=== PATIENT | female | born 1965 | race Caucasian/White ===

== ENCOUNTER 2021-07-17 18:00 | Emergency (ER) | payer OTHER ==
[2021-07-17 18:30] VITALS: BP 117/79; PULSE 70; TEMP 97.9; BMI 22.6
[2021-07-17] MEDS ORDERED: IBUPROFEN 600 MG TABLET (FP) PO ONE ×2 (19:47→20:13)
[2021-07-17 21:48] LABS: EPI CELLS 1 /uL (0-25.1); HYALINE CASTS 1 /uL (0-3.1); PH,URINE 5.5 (5.0-8.0); URINE APPEARANCE CLOUDY; URINE BILIRUBIN 2+ (NEGATIVE); URINE COLOR ORANGE; URINE GLUCOSE (UA) NEGATIVE (NEGATIVE); URINE KETONE NEGATIVE (NEGATIVE); URINE LEUK ESTERASE 2+ (NEGATIVE); URINE NITRITE POSITIVE (NEGATIVE); URINE PROTEIN 4+ (NEGATIVE); URINE RBC 4742 /uL (0-23.9); URINE WBC 1500 /uL (0-25.8)
[2021-07-17 21:56] LABS: BASO % 0.4 % (0-2.0); EOS % 0.8 % (0-4.5); HEMATOCRIT 37.3 % (32.4-45.2); HEMOGLOBIN 12.7 GM/dL (10.7-15.3); LYMPH % 19.8 % (8-40); MCHC 34.2 g/dl (32.0-36.0); MEAN CELL VOLUME 87.9 fl (80-96); MEAN PLT VOLUME 8.1 fl (7.5-11.1); MONO % 4.6 % (3.8-10.2); NEUT % 74.4 % (42.8-82.8); PLATELET COUNT 300 10^3/uL (134-434); RBC 4.24 M/mm3 (3.60-5.2); RDW 12.6 % (11.6-15.6); WHITE BLOOD COUNT 13.5 K/mm3 (4.0-10.0)
[2021-07-17 22:12] LABS: ALBUMIN 4.3 g/dl (3.4-5.0); CALCIUM 9.7 mg/dL (8.5-10.1)
[2021-07-17 22:13] LABS: BLOOD UREA NITROGEN 15.6 mg/dL (7-18)
[2021-07-17 22:17] LABS: BILIRUBIN,TOTAL 0.4 mg/dL (0.2-1); TOT PROT 7.9 g/dl (6.4-8.2)
[2021-07-17 23:10] LABS: URINE BACTERIA 46.5 /uL (0-1359); YEAST MANY (NEGATIVE)
== END 2021-07-17 23:09 | disposition home or self-care (01) ==
LOC: JER 18:00
DX: N30.00 Acute cystitis without hematuria (principal)
CPT/HCPCS: 36415; 74176-TC; 80053; 81003; 84703; 85025; 87086; 87186; 99284-25

== ENCOUNTER 2023-11-23 19:55 | Emergency (ER) | payer OTHER ==
[2023-11-23 20:03] VITALS: BP 112/68; PULSE 68; RESP 20; TEMP 98.5; BMI 24.7
[2023-11-23] MEDS ORDERED: ACETAMINOPHEN 500 MG TABLET (FP) ONE (21:37)
[2023-11-23] MEDS: ACETAMINOPHEN 500 MG TABLET (FP) PO ONE (21:48)
== END 2023-11-23 22:55 | disposition home or self-care (01) ==
LOC: JERFT 19:55 → JER 19:55 → JERFT 22:55
DX: J10.1 Influenza due to other identified influenza virus with other respiratory manifestations (principal); R51.9 Headache, unspecified; M79.10 Myalgia, unspecified site; R05.9 Cough, unspecified; R09.89 Other specified symptoms and signs involving the circulatory and respiratory systems; R11.10 Vomiting, unspecified; Z20.822 Contact with and (suspected) exposure to COVID-19
CPT/HCPCS: 0241U-QW; 71046-TC-FY; 99284-25

== ENCOUNTER 2024-05-04 20:23 | Emergency (ER) | payer OTHER ==
[2024-05-04 20:43] VITALS: BMI 28.3
[2024-05-04] MEDS ORDERED: FAMOTIDINE 20 MG/50 ML IVPB 20 MG/50 ML MG IVPB ONE (22:21)
[2024-05-04] MEDS ORDERED: MAG HYDROX/AL HYDROX/SIMETH 30 ML UNIT-DOSE CUP ONE (22:21)
[2024-05-04] MEDS ORDERED: ACETAMINOPHEN INJECTION 100 ML IVPB ONE (22:21)
[2024-05-04] MEDS: ACETAMINOPHEN 1000 MG/100 ML BAG IVPB ONE (22:42)
[2024-05-04] MEDS: MAG HYDROX/AL HYDROX/SIMETH -MYLANTA- ORAL SUSPENSION PO ONE (22:42)
[2024-05-04] MEDS: SODIUM CHLORIDE 0.9% 500 ML INFUS.BAG IV ONE (22:42)
[2024-05-04] MEDS: FAMOTIDINE 20 MG/50 ML IVPB 20 MG in PREMIX 50 IVPB ONE (22:42)
[2024-05-04 23:29] LABS: BASO % 0.3 % (0-2.0); EOS % 0.6 % (0-4.5); HEMATOCRIT 36.4 % (32.4-45.2); HEMOGLOBIN 12.3 GM/dL (10.7-15.3); MCH 29.6 pg (25.7-33.7); MCHC 33.8 g/dl (32.0-36.0); MEAN CELL VOLUME 87.5 fl (80-96); MEAN PLT VOLUME 8.4 fl (7.5-11.1); MONO % 5.6 % (3.8-10.2); NEUT % 78.5 % (42.8-82.8); PLATELET COUNT 364 10^3/uL (134-434); RBC 4.15 M/mm3 (3.60-5.2); RDW 12.7 % (11.6-15.6); WHITE BLOOD COUNT 11.6 K/mm3 (4.0-10.0)
[2024-05-04 23:41] LABS: POTASSIUM 4.1 mmol/L (3.5-5.1)
[2024-05-04 23:43] LABS: CALCIUM 9.7 mg/dL (8.5-10.1)
[2024-05-04 23:43] LABS: EPI CELLS 8 /uL (0-25.1); HYALINE CASTS 2 /uL (0-3.1); URINE APPEARANCE CLEAR; URINE BACTERIA 934 /uL (0-1359); URINE BILIRUBIN NEGATIVE (NEGATIVE); URINE COLOR YELLOW; URINE GLUCOSE (UA) NEGATIVE (NEGATIVE); URINE KETONE 1+ (NEGATIVE); URINE LEUK ESTERASE 2+ (NEGATIVE); URINE NITRITE NEGATIVE (NEGATIVE); URINE PROTEIN 3+ (NEGATIVE); URINE RBC 516 /uL (0-23.9); URINE UROBILINOGEN 0.2 mg/dL (0.2-1.0); URINE WBC 577 /uL (0-25.8)
[2024-05-04 23:44] LABS: ALBUMIN 4.1 g/dl (3.4-5.0); BLOOD UREA NITROGEN 19.1 mg/dL (7-18)
[2024-05-04 23:46] LABS: CREATININE 1.1 mg/dL (0.55-1.3)
[2024-05-04 23:48] LABS: BILIRUBIN,TOTAL 0.6 mg/dL (0.2-1); TOT PROT 7.5 g/dl (6.4-8.2)
[2024-05-05 00:40] LABS: HIV INTERPRETATION NEGATIVE (NEGATIVE)
[2024-05-05] MEDS: ACETAMINOPHEN 1000 MG/100 ML BAG IVPB ONE (01:47)
[2024-05-05] MEDS: FAMOTIDINE 20 MG/50 ML IVPB 20 MG/50 ML MG IVPB ONE (01:47)
[2024-05-05] MEDS: MAG HYDROX/AL HYDROX/SIMETH -MYLANTA- ORAL SUSPENSION PO ONE (01:47)
[2024-05-05] MEDS ORDERED: ACETAMINOPHEN INJECTION 100 ML IVPB ONE (01:48)
[2024-05-05 02:00] VITALS: TEMP 98.6
[2024-05-05] MEDS ORDERED: SULFAMETHOXAZOLE/TRIMETHOPRIM 800MG/160MG D.S. TABLET ONE (03:36)
[2024-05-05] MEDS: SULFAMETHOXAZOLE/TRIMETHOPRIM 800MG/160MG D.S. TABLET PO ONE (03:37)
[2024-05-05 04:34] VITALS: BP 100/65; PULSE 52; RESP 14
== END 2024-05-05 05:13 | disposition home or self-care (01) ==
LOC: JER 20:23
PROC: 3E033GC Introduction of Other Therapeutic Substance into Peripheral Vein, Percutaneous Approach (ICD-10-PCS; principal; 2024-05-04)
PROC: 3E033NZ Introduction of Analgesics, Hypnotics, Sedatives into Peripheral Vein, Percutaneous Approach (ICD-10-PCS; 2024-05-04)
PROC: 3E033NZ Introduction of Analgesics, Hypnotics, Sedatives into Peripheral Vein, Percutaneous Approach (ICD-10-PCS; 2024-05-05)
DX: R10.84 Generalized abdominal pain (principal); R11.2 Nausea with vomiting, unspecified; N39.0 Urinary tract infection, site not specified
CPT/HCPCS: 36415; 71046-TC-FY; 74177-TC; 80053; 81003; 83690; 84484; 85025; 86803; 87389; 93005; 93010; 99285-25; J0131